=== PATIENT | male | born 1965 | race African-American/Black ===

== ENCOUNTER 2018-08-21 11:57 | Outpatient (CLI) | payer BC ==
--- NOTE | 2018-08-21 13:42 | RAD ---
RIGHT KNEE FOUR VIEWS: History: 53-year-old male with history of right knee pain. FINDINGS/IMPRESSION: Severe tricompartment arthrosis and degenerative changes with marked narrowing of the medial compartm ent with hypertrophic osteophytosis without acute fracture or dislocation. POS: [facility]
--- NOTE | 2018-08-21 13:56 | RAD ---
LEFT KNEE FOUR VIEWS: History: 53-year-old male with left knee pain. FINDINGS/IMPRESSION: Severe tricompartment arthrosis with marked narrowing of the medial compartment with sclerosis and ev iration and small suprapatellar joint fluid without acute fracture or dislocation. POS: [facility]
== END 2018-08-21 11:58 | disposition home or self-care (01) ==
LOC: BICRAD 11:57
PROVIDERS: ATTEND Family Medicine
DX: M25.561 Pain in right knee (principal); M25.562 Pain in left knee; M17.0 Bilateral primary osteoarthritis of knee; M25.761 Osteophyte, right knee

== ENCOUNTER 2020-03-11 06:40 | Outpatient (CLI) | payer BC, OTHER ==
[2020-03-11 16:08] LABS: #Lymphocytes 1.9 thou/uL (1.20-3.40); #Monocytes 0.5 thou/uL (0.11-0.59); #Neutrophils 1.9 thou/uL (1.40-6.50); %Basophils 1.1 % (0.0-1.0); %Eosinophils 0.7 % (0.0-10.0); %Lymphocytes 41.9 % (21.0-51.0); %Monocytes 12.3 % (0.0-10.0); %Neutrophils 43.9 % (42.0-75.0); Hemoglobin 15.6 g/dL (14.0-18.0); Mean Corpuscular HGB CONC 32.9 g/dL (32.0-36.0); Mean Corpuscular Hemoglobin 32.5 pg (27.0-31.0); Mean Corpuscular Volume 98.7 fL (78.0-98.0); Mean Platelet Volume 7.1 fL (7.4-10.4); Platelet Count 264 thou/uL (130-400); RBC Distribution Width 12.6 % (11.5-14.5); Red Blood Cell (RBC) Count 4.79 mill/uL (4.70-6.10); White Blood Cell (WBC) Count 4.4 thou/uL (4.8-10.8)
[2020-03-11 16:16] LABS: INR-International Normal Ratio 0.9; Prothrombin Time 12.4 sec (12.0-14.7)
[2020-03-11 16:29] LABS: Anion Gap 14 mmol/L (10-20); BUN (Urea Nitrogen) 10 mg/dL (8.4-25.7); Calc. Creatinine Clearance 0 mL/min (70-130); Calcium 9.9 mg/dL (7.8-10.44); Carbon Dioxide 24 mmol/L (22-29); Chloride 105 mmol/L (98-107); Estimated GFR-MDRD 84; Glucose 133 mg/dL (70-105); Potassium 3.9 mmol/L (3.5-5.1); Sodium 139 mmol/L (136-145)
[2020-03-12 12:17] LABS: SARS-CoV-2 MS2 Positive; SARS-CoV-2 N Gene Negative; SARS-CoV-2 S Gene Negative; SARS-CoV-2 orf1ab Negative
== END 2020-03-11 06:41 | disposition home or self-care (01) ==
LOC: LABBT 06:40
PROVIDERS: ATTEND Orthopaedic Surgery
DX: Z01.818 Encounter for other preprocedural examination (principal); Z11.59 Encounter for screening for other viral diseases; M17.0 Bilateral primary osteoarthritis of knee
CPT/HCPCS: 80048; 85025; 85610; 87081; 87635; 93005; 93010; U0003

== ENCOUNTER 2020-03-11 15:30 | Inpatient (IN) | payer BC ==
[2020-03-15] MEDS ORDERED: Sodium Chloride 0.9% 100 ML ONE (06:00)
[2020-03-15] MEDS ORDERED: Tranexamic Acid 1,000 MG/10 ML VIAL ONE ×2 (06:00→10:05)
[2020-03-15] MEDS ORDERED: Vancomycin 1.5 GRAM/300 ML BAG ONE (06:00)
[2020-03-15] MEDS ORDERED: Midazolam HCl 2 mg/2 ml Vial ONE (06:24)
[2020-03-15] MEDS ORDERED: Fentanyl 100 MCG/2 ML VIAL ONE ×6 (06:24→10:06)
[2020-03-15] MEDS ORDERED: Lidocaine 1% (PF) 30 ML VIAL ONE (06:24)
[2020-03-15] MEDS ORDERED: Lidocaine 1% w/Epinephrine 1:100K 20 ML VIAL ONE (06:26)
[2020-03-15] MEDS ORDERED: Bupivacaine 0.25% HCL 30 ML VIAL ONE (06:26)
[2020-03-15] MEDS ORDERED: Promethazine HCl 25 MG/ML VIAL IM PRN ×3 (08:33→11:03)
[2020-03-15] MEDS ORDERED: Ondansetron HCl/PF 4 MG/2 ML Vial IVP PRN (08:33)
[2020-03-15] MEDS ORDERED: Promethazine HCl 25 MG/ML VIAL SLOW IVP PRN (08:33)
[2020-03-15] MEDS ORDERED: traMADol HCl 50 MG TAB PO PRN ×3 (09:12→11:03)
[2020-03-15] MEDS ORDERED: Ondansetron PF 4 MG/2 ML Vial IVP PRN ×2 (09:12→11:03)
[2020-03-15] MEDS ORDERED: HYDROcodone/Acetaminophen 10/325 mg Tablet PO PRN ×3 (09:12→11:03)
[2020-03-15] MEDS ORDERED: Ropivacaine HCl/PF 250 ML in Premix Bag 1 BAG NERVE BLCK SCH (09:12)
[2020-03-15] MEDS ORDERED: Zolpidem Tartrate 5 MG TAB PO PRN ×2 (09:12→11:03)
[2020-03-15] MEDS ORDERED: Fentanyl 100 MCG/2 ML VIAL IV PRN (09:13)
--- NOTE | 2020-03-15 10:36 | RAD ---
LEFT KNEE 2 VIEWS: HISTORY: Postop evaluation. FINDINGS/IMPRESSION: There are recent postop changes of total knee arthroplasty in good position and alignment. Soft tiss ue air is present. POS: [facility]
[2020-03-15] MEDS ORDERED: diphenhydrAMINE 25 MG CAP PO PRN (11:03)
[2020-03-15] MEDS ORDERED: Vancomycin HCl 1.5 GM in Sodium Chloride 0.9% 250 ML 300 ML IVPB SCH (11:03)
[2020-03-15] MEDS ORDERED: Fentanyl 100 MCG/2 ML VIAL SLOW IVP PRN ×2 (11:03)
[2020-03-15] MEDS ORDERED: Ketorolac Tromethamine 30 MG/ML VIAL IVP PRN (11:03)
[2020-03-15] MEDS ORDERED: Acetaminophen 325 MG TAB PO PRN (11:03)
[2020-03-15 11:59] VITALS: BMI 29.4
[2020-03-15] MEDS: Ketorolac Tromethamine 30 MG/ML VIAL IVP SCH ×2 (12:43→17:46)
[2020-03-15] MEDS: Dextrose 5 %-0.45 % NaCl 1,000 ML IV SCH ×2 (12:43→22:08)
--- NOTE | 2020-03-15 13:06 | OP ---
DATE OF PROCEDURE: 03/15/2020 PREOPERATIVE DIAGNOSES: Left knee osteoarthritis, severe flexion contracture, decreased range of motion. POSTOPERATIVE DIAGNOSES: Left knee osteoarthritis, severe flexion contracture, decreased range of motion. PROCEDURE PERFORMED: Left total knee arthroplasty. DIRECTOR OF MARKET RESEARCH: Esvin Martinez PA-C ANESTHESIOLOGIST: Helio Solano MD ANESTHESIA: The patient received a LMA with a single-shot sciatic and adductor canal. ESTIMATED BLOOD LOSS: Less than 100 mL. TOURNIQUET TIME: 19 minutes at 300 mmHg. ANTIBIOTICS: Ancef 2 g, vancomycin 1.5 g. IMPLANTS: size 5 femur, size 5 tibia, 9 CS poly X3, and A29 patella, [place] implants. COMPLICATION: None INDICATIONS FOR PROCEDURE: Mr. Anaya is a 54-year-old male, who presents with decreased range of motion, pain for many years, had a severe varus and deformity. I discussed with the risks and benefits of left total knee arthroplasty to include , pain, scar, bleeding, infection, decreased range of motion and strength, continued pain despite surgical intervention, need for further surgeries, continued pain despite surgical intervention, damage to vital structures, nerves, arteries, tendons, stiffness, loss of life or limb. The patient understood the risks and benefits of the procedure and elected to proceed. DESCRIPTION OF PROCEDURE: Time-out was performed designating the patient's left lower extremity as the operative site based on site, consents, and marking. After time-out, the patient's left lower extremity was prepped and draped in sterile fashion. Tourniquet was brought up and left for 19 minutes. Anterior midline incision was made. Medial patellar arthrotomy exposed the patient's patella, everted the patella. As we everted the patella, there was some peel off distally, but still had 70% of the tendon appeared to be attached. We did a fat pad release and a medial soft tissue release. We rongeured osteophytes off the bone and exposed the patient's distal femur. He had significant deformity with eburnated bone of the medial femoral condyle and the medial tibial plateau. We pinned the guide and mapped out the femur, cut at 7 medially, 11 laterally, and 0 degrees of varus and valgus and 5 degrees of slope, removed all the bone and some medial soft tissue, bone released. My staff assistant was retracting the control on the patella as well as lateral collateral ligament. With knee flexion, I was exposing and placing our external guide, which was difficult because of the patient's bone, we had to remove some of the osteophytosis of the tibial tubercle. We pinned our 3 degree guide , we cut in 3 degrees external rotation and chose a size 5 cutting block, my staff assistant retracted the collaterals,we cut the anterior, posterior, and chamfer cuts, removed all the bone spurs. We then exposed and knocked off a portion of the big old osteophyte within the medial MCL to decompress. On completion of this, we moved to the tibia. We rongeured the osteotome to knock off a portion of medial plateau to help with decompressing the MCL. We pinned our tibial tray, cut 1 degrees of varus, 4 degrees posterior slope, and we cut first -5 and 8 and went to -3 and 10, we made a little posteromedial defect and that was what appeared to be less than 20% of overall tibia, removed our bone. We used our laminar spreaders and made decompression of menisci, decompressed the PCL, took out posterior osteophytes, and released our PCL. We had to repin our tibial tray this was slightly externally rotated. I think it was in good overall alignment and pinned it in position, trialed with a 9, had good overall extension, we did a little more PCL release to help with our full extension and I liked the extension with varus and valgus as well as flexion and extension. The patella tracked well within the femur. We everted the patella, cut it from about 26, down to about 13, placed A29 patella, which tracked well, removed all of our implants, drilled our lugs, cut our keel for tibia. We drilled some holes in the eburnated bone on the posteromedial defect that was about 10% of the overall defect, made it under the plate. After drilling and washing, I washed out the joint. My staff assistant helped with retraction of the collaterals as he had done throughout the case to expose the PCL to expose the knee. We impacted tray down. We left some cement medially and cement was cleaned by myself and my staff assistant. We then everted the patella, removed this and placed a clamp. We clamped across, removed the cement. We washed and ensured that all the cement had been removed. We both closed sequentially with 0, with #2 Vicryl, 2 Stratafix, 0 Stratafix, and 2-0 Stratafix in opposite directions proximally and distally to include the skin. The patient will be admitted for [facility] protocol and will be followed inhouse. Job ID: [id number] MTDD
[2020-03-15] MEDS ORDERED: Ketorolac Tromethamine 30 MG/ML VIAL ONE (14:29)
[2020-03-15] MEDS ORDERED: Lidocaine 1% PF 5 ML VIAL ONE (14:29)
[2020-03-15] MEDS ORDERED: Ondansetron PF 4 MG/2 ML Vial ONE (14:29)
[2020-03-15] MEDS ORDERED: PROPOFOL 200 MG/20 ML VIAL ONE (14:29)
[2020-03-15] MEDS ORDERED: Ropivacaine 0.5% HCl/PF (150 MG/30 ML VIAL) ONE (14:30)
[2020-03-15] MEDS ORDERED: Ropivacaine 0.2% HCl/PF (40 MG/20 ML VIAL) ONE (14:30)
[2020-03-15] MEDS ORDERED: EPINEPHrine 1 MG/10 ML Abboject SYRINGE ONE (14:30)
[2020-03-15] MEDS: HYDROcodone/Acetaminophen 10/325 mg Tablet PO PRN (15:50)
[2020-03-15] MEDS: CEFAZOLIN 2 GM in Premix Bag 1 BAG IVPB SCH (15:51)
[2020-03-15] MEDS ORDERED: Vancomycin 1.5 GRAM/300 ML BAG 1.5 GM in Premix Bag 1 BAG IVPB SCH (18:00)
[2020-03-15] MEDS: Atorvastatin Calcium 10 MG TAB PO SCH (22:09)
[2020-03-15] MEDS: Aspirin 81 mg Enteric Coated Tablet PO SCH (22:09)
[2020-03-16] MEDS: CEFAZOLIN 2 GM in Premix Bag 1 BAG IVPB SCH (00:03)
[2020-03-16] MEDS: Ketorolac Tromethamine 30 MG/ML VIAL IVP SCH ×5 (00:03→23:54)
[2020-03-16] MEDS: HYDROcodone/Acetaminophen 10/325 mg Tablet PO PRN ×4 (01:32→21:09)
[2020-03-16 05:34] LABS: Hemoglobin 12.6 g/dL (14.0-18.0); Mean Corpuscular HGB CONC 33.6 g/dL (32.0-36.0); Mean Corpuscular Hemoglobin 33.2 pg (27.0-31.0); Mean Corpuscular Volume 98.8 fL (78.0-98.0); Mean Platelet Volume 6.9 fL (7.4-10.4); Platelet Count 190 thou/uL (130-400); RBC Distribution Width 12.4 % (11.5-14.5); White Blood Cell (WBC) Count 7.4 thou/uL (4.8-10.8)
--- NOTE | 2020-03-16 07:40 | PRG ---
DATE OF SERVICE: 03/16/2020 HISTORY: Mr. Anaya is a 54-year-old male, status post left total knee arthroplasty. The patient is resting in bed, slight elevation of blood pressure overnight, but otherwise comfortable. OBJECTIVE: VITAL SIGNS: Temperature 98.2, pulse 107, respirations 18, and blood pressure 162/96. GENERAL: Alert and oriented male, in no acute distress. EXTREMITIES: Left lower extremity; dressing clean, dry and intact, moving his toes, neurovascularly intact. LABORATORY DATA: The patient's H and H are 12 and 37. IMPRESSION: Status post left total knee arthroplasty. ASSESSMENT AND PLAN: The patient will be followed [place] protocol. Weightbear as tolerated. Take aspirin b.i.d. We will monitor his blood pressure based off pain control and restarting on his blood pressure medications. He will be followed inhouse. Job ID: [id number]
[2020-03-16] MEDS: Ferrous Gluconate 324 MG TAB PO SCH ×2 (08:05→21:11)
[2020-03-16] MEDS: Amlodipine 10 MG TAB PO SCH (08:09)
[2020-03-16] MEDS: Aspirin 81 mg Enteric Coated Tablet PO SCH ×2 (08:09→21:10)
[2020-03-16] MEDS: Multivitamin W/ Minerals 1 TAB PO SCH (08:09)
[2020-03-16] MEDS: Senokot S 8.6-50 MG TAB PO SCH ×2 (08:10→21:10)
[2020-03-16] MEDS: Dextrose 5 %-0.45 % NaCl 1,000 ML IV SCH ×2 (08:19→12:47)
[2020-03-16] MEDS: Atorvastatin Calcium 10 MG TAB PO SCH (21:11)
[2020-03-17] MEDS: Dextrose 5 %-0.45 % NaCl 1,000 ML IV SCH ×2 (03:36→12:45)
[2020-03-17 05:31] LABS: Hemoglobin 11.8 g/dL (14.0-18.0); Mean Corpuscular HGB CONC 32.4 g/dL (32.0-36.0); Mean Corpuscular Hemoglobin 31.9 pg (27.0-31.0); Mean Corpuscular Volume 98.5 fL (78.0-98.0); Mean Platelet Volume 7.2 fL (7.4-10.4); Platelet Count 196 thou/uL (130-400); RBC Distribution Width 12.4 % (11.5-14.5); White Blood Cell (WBC) Count 8.2 thou/uL (4.8-10.8)
[2020-03-17] MEDS: HYDROcodone/Acetaminophen 10/325 mg Tablet PO PRN ×3 (05:37→15:03)
[2020-03-17] MEDS: Ketorolac Tromethamine 30 MG/ML VIAL IVP SCH (05:38)
[2020-03-17 08:22] VITALS: TEMP 97.7
[2020-03-17] MEDS: Senokot S 8.6-50 MG TAB PO SCH (10:01)
[2020-03-17] MEDS: Aspirin 81 mg Enteric Coated Tablet PO SCH (10:01)
[2020-03-17] MEDS: Ferrous Gluconate 324 MG TAB PO SCH (10:02)
[2020-03-17] MEDS: Amlodipine 10 MG TAB PO SCH (10:02)
[2020-03-17] MEDS: Multivitamin W/ Minerals 1 TAB PO SCH (10:02)
[2020-03-17 12:09] VITALS: BP 158/87
== END 2020-03-17 15:53 | disposition home or self-care (01) | DRG 470 ==
LOC: SJJU 03-15 05:35 → EDSTATUS 03-15 15:30
PROVIDERS: ADMIT Orthopaedic Surgery; ATTEND Orthopaedic Surgery
PROC: 0SRD0J9 Replacement of Left Knee Joint with Synthetic Substitute, Cemented, Open Approach (ICD-10-PCS; principal; 2020-03-15)
DX: M17.12 Unilateral primary osteoarthritis, left knee (principal); I10 Essential (primary) hypertension; E78.5 Hyperlipidemia, unspecified; Z79.899 Other long term (current) drug therapy
CPT/HCPCS: 36415; 85027; C1713; C1776; J0171; J0690; J1885; J2001; J2250; J2405; J2704; J2795; J3010; J3370; J3490; S0020